=== PATIENT | female | born 1995 | race Hispanic/Latino ===

== ENCOUNTER 2019-08-05 17:42 | Emergency (ER) | payer SELFPAY ==
[2019-08-05] MEDS ORDERED: LIDOCAINE 1% MPF 5 ML VIAL ONE (18:20)
--- NOTE | 2019-08-05 18:52 | ER ---
Nurse's Notes [facility] Name: Chinyere Spann Age: 24 yrs Sex: Female : 1995 Arrival Date: 08/05/2019 Time: 17:44 Bed 5 Private MD: Diagnosis: Abscess of Bartholin's gland Presentation: 08/05 18:04 Presenting complaint: Patient states: abscess to pelvic area that began 2 days ago. ss Denies drainage, fever. Transition of care: patient was not received from another setting of care. Onset of symptoms was August 02, 2019. Risk Assessment: Do you want to hurt yourself or someone else? Patient reports no desire to harm self or others. Initial Sepsis Screen: Does the patient meet any 2 criteria? No. Patient's initial sepsis screen is negative. Does the patient have a suspected source of infection? Yes: Skin breakdown/wound. Care prior to arrival: None. 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 - Social history:: Smoking status: Patient/guardian denies using tobacco. - Ebola Screening: : Patient denies exposure to infectious person Patient denies travel to an Ebola-affected area in the 21 days before illness onset. Screenin:10 Abuse screen: Denies threats or abuse. Nutritional screening: No deficits noted. tw2 Tuberculosis screening: No symptoms or risk factors identified. Fall Risk None identified. Assessment: 18:12 General: Appears in no apparent distress. Behavior is calm, cooperative, appropriate tw2 for age. Pain: Complains of pain in pelvis. Neuro: Level of Consciousness is awake, alert, obeys commands, Oriented to person, place, time, situation. Cardiovascular: Patient's skin is warm and dry. Respiratory: Airway is patent Respiratory effort is even, unlabored, Respiratory pattern is regular, symmetrical. GI: No signs and/or symptoms were reported involving the gastrointestinal system. : No signs and/or symptoms were reported regarding the genitourinary system. EENT: No signs and/or symptoms were reported regarding the EENT system. Derm: Reports abscess to pelvic area, denies drainage. Musculoskeletal: Range of motion: intact in all extremities. 18:58 Reassessment: Patient appears in no apparent distress at this time. No changes from tw2 previously documented assessment. Patient and/or family updated on plan of care and expected duration. Pain level reassessed. Patient is alert, oriented x 3, equal unlabored respirations, skin warm/dry/pink. Vital Signs: 18:06 Pulse 89; Resp 16; Temp 97.6(TE); Pulse Ox 100% on R/A; Weight 80.74 kg; Height 5 ft. 7 ss in. (170.18 cm); Pain 9/10; 18:06 Body Mass Index 27.88 (80.74 kg, 170.18 cm) ss ED Course: 17:44 Patient arrived in ED. as 18:05 Triage completed. ss 18:10 Tawny Do RN is Primary Nurse. tw2 18:10 [facility]C [facility]. kb 18:10 Pramod Mora MD is Attending Physician. kb 18:10 Arm band placed on. tw2 18:11 Placed in gown. Bed in low position. tw2 18:44 Wound Culture Sent. tw2 18:58 No provider procedures requiring assistance completed. Patient did not have IV access tw2 during this emergency room visit. Administered Medications: 18:40 Drug: Lidocaine (1 %) 5 ml {Note: via FNP. Deana} Volume: 5 ml; Route: tw2 Infiltration; 18:57 Drug: Doxycycline 100 mg Route: PO; tw2 18:57 Follow up: Response: No adverse reaction tw2 Outcome: 18:52 Discharge ordered by . kb 18:58 Discharged to home ambulatory, with significant other. tw2 18:58 Condition: stable 18:58 Discharge instructions given to patient, significant other, Instructed on discharge instructions, follow up and referral plans. medication usage, wound care, Demonstrated understanding of instructions, follow-up care, medications, wound care, Prescriptions given X 1. 18:58 Patient left the ED. tw2 Addendum: 08/08/2019 07:42 Addendum: Culture Results: Positive wound culture. No further action required. Bacteria i w sensitive to prescribed antibiotic. Signatures: Cindy Dong FNP-C FNP-Ckb Martinez Cara as Faby Laird, RN RN iw Tiffanie Coronado, RN RN ss Tawny Do, RN RN tw2
--- NOTE | 2019-08-05 18:52 | EDPHYS ---
Physician Documentation [facility] Name: Chinyere Spann Age: 24 yrs Sex: Female : 1995 Arrival Date: 08/05/2019 Time: 17:44 Bed 5 Private MD: ED Physician Pramod Mora HPI: 08/05 18:51 This 24 yrs old Female presents to ER via Ambulatory with complaints of kb Abscess. 18:51 The patient presents with an abscess of the left labia minora. Description: kb erythematous, swollen. Onset: The symptoms/episode began/occurred 3 day(s) ago. Possible cause(s): unknown. Associated signs and symptoms: Pertinent positives: erythema, swelling. Modifying factors: the symptoms are alleviated by nothing, the symptoms are aggravated by walking, pressure, sitting, squeezing the lesion and expressing the contents, touching. Severity of symptoms: At their worst the symptoms were moderate, in the emergency department the symptoms are unchanged. The patient has not experienced similar symptoms in the past. The patient has not recently seen a physician. 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 - Social history:: Smoking status: Patient/guardian denies using tobacco. - Ebola Screening: : Patient denies exposure to infectious person Patient denies travel to an Ebola-affected area in the 21 days before illness onset. ROS: 18:47 Constitutional: Negative for fever, chills, and weight loss, Neck: Negative for injury, kb pain, and swelling, Cardiovascular: Negative for chest pain, palpitations, and edema, Respiratory: Negative for shortness of breath, cough, wheezing, and pleuritic chest pain, Abdomen/GI: Negative for abdominal pain, nausea, vomiting, diarrhea, and constipation, MS/Extremity: Negative for injury and deformity, Neuro: Negative for headache, weakness, numbness, tingling, and seizure. 18:47 Skin: Positive for abscess, rash, of the left labia minora. Exam: 18:45 Constitutional: This is a well developed, well nourished patient who is awake, alert, kb and in no acute distress. Head/Face: Normocephalic, atraumatic. Chest/axilla: Normal chest wall appearance and motion. Nontender with no deformity. No lesions are appreciated. Cardiovascular: Regular rate and rhythm with a normal S1 and S2. No gallops, murmurs, or rubs. Normal PMI, no JVD. No pulse deficits. Respiratory: Lungs have equal breath sounds bilaterally, clear to auscultation and percussion. No rales, rhonchi or wheezes noted. No increased work of breathing, no retractions or nasal flaring. Abdomen/GI: Soft, non-tender, with normal bowel sounds. No distension or tympany. No guarding or rebound. No evidence of tenderness throughout. Back: No spinal tenderness. No costovertebral tenderness. Full range of motion. MS/ Extremity: Pulses equal, no cyanosis. Neurovascular intact. Full, normal range of motion. Neuro: Awake and alert, GCS 15, oriented to person, place, time, and situation. Cranial nerves II-XII grossly intact. Motor strength 5/5 in all extremities. Sensory grossly intact. Cerebellar exam normal. Normal gait. 18:45 : Pelvic Exam: External exam: Bartholin's cyst present, the nurse was present for the exam. Vital Signs: 18:06 Pulse 89; Resp 16; Temp 97.6(TE); Pulse Ox 100% on R/A; Weight 80.74 kg; Height 5 ft. 7 ss in. (170.18 cm); Pain 9/10; 18:06 Body Mass Index 27.88 (80.74 kg, 170.18 cm) ss Procedures: 18:48 I \T\ D: Incision and drainage was performed for an abscess of the left Bartholin's kb gland. Prepped with Betadine, Anesthetized with 1 ml's 1% Lidocaine. Incised with #11 blade. Drained moderate amount purulent fluid. Packed with sterile gauze, the patient tolerated the procedure well. MDM: 18:10 Patient medically screened. kb 18:48 Data reviewed: vital signs, nurses notes. Data interpreted: Pulse oximetry: on room air kb is 100 %. Interpretation: normal. Counseling: I had a detailed discussion with the patient and/or guardian regarding: the historical points, exam findings, and any diagnostic results supporting the discharge/admit diagnosis, the need for outpatient follow up, an OB/Gyne specialist, to return to the emergency department if symptoms worsen or persist or if there are any questions or concerns that arise at home. 08/05 18:33 Order name: Wound Culture wh 08/05 18:25 Order name: I\T\D Setup; Complete Time: 18:26 tw2 Administered Medications: 18:40 Drug: Lidocaine (1 %) 5 ml {Note: via FNP. Deana} Volume: 5 ml; Route: tw2 Infiltration; 18:57 Drug: Doxycycline 100 mg Route: PO; tw2 18:57 Follow up: Response: No adverse reaction tw2 Disposition: 08/06 07:53 Co-signature as Attending Physician, Pramod Mora MD I agree with the assessment and jose plan of care. Disposition: 08/05/19 18:52 Discharged to Home. Impression: Abscess of Bartholin's gland. - Condition is Stable. - Discharge Instructions: Bartholin Cyst or Abscess, [id number]. - Prescriptions for Doxycycline Hyclate 100 mg Oral Tablet - take 1 tablet by ORAL route every 12 hours; 20 tablet. - Medication Reconciliation Form, Thank You Letter, Antibiotic Education, Prescription Opioid Use, Work release form form. - Follow up: Private Physician; When: 2 - 3 days; Reason: Recheck today's complaints, Continuance of care, Re-evaluation by your physician. Follow up: Emergency Department; When: As needed; Reason: Worsening of condition. Signatures: Dispatcher [employer] EDCindy Alvarado, BRISEYDA GEORGE-Pramod Francisco MD MD cha Smirch, Shelby, RN RN Tawny Do RN RN tw2 Corrections: (The following items were deleted from the chart) 08/05 18:58 18:52 08/05/2019 18:52 Discharged to Home. Impression: Abscess of Bartholin's gland. tw2 Condition is Stable. Forms are Work release form, Medication Reconciliation Form, Thank You Letter, Antibiotic Education, Prescription Opioid Use. Follow up: Private Physician; When: 2 - 3 days; Reason: Recheck today's complaints, Continuance of care, Re-evaluation by your physician. Follow up: Emergency Department; When: As needed; Reason: Worsening of condition. kb
[2019-08-05] MEDS ORDERED: DOXYCYCLINE 100 MG CAP PO ONE (18:55)
[2019-08-05 19:03] VITALS: TEMP 97.6; O2SAT 100
== END 2019-08-05 18:58 | disposition home or self-care (01) ==
LOC: ER 17:42
PROC: 0U9L0ZZ Drainage of Vestibular Gland, Open Approach (ICD-10-PCS; principal; 2019-08-05)
DX: N75.1 Abscess of Bartholin's gland (principal); Z88.6 Allergy status to analgesic agent
CPT/HCPCS: 87070; 87077; 87186; 87205; 99283